=== PATIENT | male | born 1975 | race African-American/Black ===

== ENCOUNTER 2018-08-20 08:42 | Emergency (ER) | payer SELFPAY ==
[~2018-08-20] VITALS: Ht 180.3 cm; Wt 100.0 kg
[2018-08-20 12:30] VITALS: BP 147/88
== END 2018-08-20 12:33 | disposition home or self-care (01) | DRG 730 ==
LOC: ED 08:42
PROC: 0VQ5XZZ Repair Scrotum, External Approach (ICD-10-PCS; principal; 2018-08-20)
DX: S31.31XA Laceration without foreign body of scrotum and testes, initial encounter (principal); Y04.0XXA Assault by unarmed brawl or fight, initial encounter

== ENCOUNTER 2018-08-27 08:31 | Emergency (ER) | payer SELFPAY ==
[~2018-08-27] VITALS: Ht 180.3 cm; Wt 100.0 kg
[2018-08-27] MEDS ORDERED: AMOXICILLIN875 MG PO (08:54)
[2018-08-27 09:44] VITALS: BP 141/74
== END 2018-08-27 09:44 | disposition home or self-care (01) | DRG 950 ==
LOC: ED 08:31
DX: S31.31XD Laceration without foreign body of scrotum and testes, subsequent encounter (principal); Z48.00 Encounter for change or removal of nonsurgical wound dressing

== ENCOUNTER 2018-08-29 07:26 | Emergency (ER) | payer SELFPAY ==
[~2018-08-29] VITALS: Ht 180.3 cm; Wt 95.0 kg
[~2018-08-29 07:26] MED LIST: AMOXICILLIN875 MG PO
[2018-08-29 07:55] VITALS: BP 160/80
== END 2018-08-29 08:01 | disposition home or self-care (01) | DRG 730 ==
LOC: ED 07:26
DX: S31.31XA Laceration without foreign body of scrotum and testes, initial encounter (principal); X58.XXXA Exposure to other specified factors, initial encounter; F17.210 Nicotine dependence, cigarettes, uncomplicated

== ENCOUNTER 2018-09-01 14:20 | Emergency (ER) | payer SELFPAY ==
[~2018-09-01] VITALS: Ht 180.3 cm; Wt 95.0 kg
[2018-09-01 14:40] VITALS: BP 145/97
== END 2018-09-01 14:50 | disposition home or self-care (01) | DRG 950 ==
LOC: ED 14:20
DX: S31.31XD Laceration without foreign body of scrotum and testes, subsequent encounter (principal); X58.XXXD Exposure to other specified factors, subsequent encounter

== ENCOUNTER 2018-09-08 12:11 | Emergency (ER) | payer SELFPAY ==
[~2018-09-08] VITALS: Ht 180.3 cm; Wt 100.0 kg
[2018-09-08 14:05] VITALS: BP 128/90
== END 2018-09-08 14:05 | disposition home or self-care (01) | DRG 950 ==
LOC: ED 12:11
DX: S31.31XD Laceration without foreign body of scrotum and testes, subsequent encounter (principal); X58.XXXD Exposure to other specified factors, subsequent encounter

== ENCOUNTER 2020-04-13 15:34 | Emergency (ER) | payer OTHER ==
[2020-04-13 16:30] LABS: HEMATOCRIT 37.9 % (39.0-50.0); HEMOGLOBIN 12.6 g/dl (14.0-18.0); IMMATURE GRANULOCYTES 0.2 % (0.0-5.0); MEAN CELL VOLUME 85.7 fL CALC (80.0-100.0); MEAN CORPUSCULAR HGB 28.5 pG CALC (26.0-32.0); MEAN CORPUSCULAR HGB CONC 33.2 g/dL CAL (32.0-36.0); NEUT# 5.23 thou/uL (1.82-7.42); RED BLOOD COUNT 4.42 mill/uL (4.70-6.10); RED CELL DISTRI WIDTH 11.5 % (11.5-15.5)
[2020-04-13 16:33] LABS: URINE BILIRUBIN - DIPSTICK NEGATIVE (NEGATIVE); URINE BLOOD DIPSTICK SMALL (NEGATIVE); URINE CLARITY CLEAR; URINE COLOR YELLOW; URINE GLUCOSE - DIPSTICK NEGATIVE (NEGATIVE); URINE KETONE NEGATIVE (NEGATIVE); URINE LEUK ESTERASE NEGATIVE (Negative); URINE NITRITE - DIPSTICK NEGATIVE (Negative); URINE PH 5.5 (4.5-8.0); URINE PROTEIN - DIPSTICK NEGATIVE (NEG-TRACE); URINE SPECIFIC GRAVITY >=1.030; URINE UROBILINOGEN - DIPSTICK 0.2 E.U./dL (0.2)
[2020-04-13 16:40] LABS: ALBUMIN 3.8 g/dL (3.2-5.0); ALKALINE PHOSPHATASE 65 u/l (38-126); ANION GAP 10 (6-22 (CALC)); BILIRUBIN, TOTAL 0.9 mg/dL (0.0-1.4); BUN 11 mg/dL (9-20); BUN/CREATININE RATIO 11 (12-20 (CALC)); CARBON DIOXIDE 25 mmol/l (22-30); CHLORIDE 103 mmol/l (95-108); GFR > 60 ML/MIN (>=60 (CALC)); GFR FOR AFR.AMER. > 60 ML/MIN (>=60 (CALC)); LIPASE 86 u/l (23-300); SGOT/AST 23 u/l (17-59); TOTAL PROTEIN 6.6 g/dL (6.3-8.2)
[2020-04-13 16:41] LABS: SODIUM 135 mmol/l (137-146)
[2020-04-13 16:45] LABS: URINE WBC 0-2 WBC/hpf (0-5)
[2020-04-13] MEDS ORDERED: FLEXERIL PO (17:27)
[2020-04-13] MEDS ORDERED: IBUPROFEN600 MG PO (17:27)
[2020-04-13 17:57] VITALS: BP 149/81
== END 2020-04-13 17:57 | disposition home or self-care (01) | DRG 552 ==
LOC: ED 15:34
DX: S16.1XXA Strain of muscle, fascia and tendon at neck level, initial encounter (principal); S30.1XXA Contusion of abdominal wall, initial encounter; F17.210 Nicotine dependence, cigarettes, uncomplicated; V43.52XA Car driver injured in collision with other type car in traffic accident, initial encounter
CPT/HCPCS: Q9967

== ENCOUNTER 2021-06-28 16:15 | Emergency (ER) | payer SELFPAY ==
[~2021-06-28] VITALS: Ht 180.3 cm; Wt 100.0 kg
[~2021-06-28 16:15] MED LIST changes: +FLEXERIL PO; +IBUPROFEN600 MG PO
[2021-06-28 16:38] VITALS: BP 134/78
[2021-06-28] MEDS ORDERED: ONDANSETRON4 MG PO (16:39)
== END 2021-06-28 16:53 | disposition home or self-care (01) | DRG 392 ==
LOC: ED 16:15
DX: K52.9 Noninfective gastroenteritis and colitis, unspecified (principal); F17.200 Nicotine dependence, unspecified, uncomplicated